=== PATIENT | male | born 1960 | race Caucasian/White ===

== ENCOUNTER 2016-10-09 07:35 | Emergency (ER) | payer OTHER ==
[2016-10-09 07:51] VITALS: BP 119/91; PULSE 90; RESP 20; TEMP 97.7; O2SAT 95
--- NOTE | 2016-10-09 08:01 | UCPHY ---
H & P Time Seen by Provider: 10/09/16 07:43 Patient Type: New HPI/ROS: This patient presents with a chief complaint of bilateral eye irritation. On the right began 3 or 4 days ago and consists eyelid swelling, irritation with mild pain and some blurring of vision and also discharge. The symptoms in left eye are much less severe and began this morning. He has had a cold for 5 days consisting of nasal congestion, sore throat, cough but no fever, chest pain or shortness of breath. He does not wear contacts and denies phonophobia. Smoking Status: Former smoker Physical Exam: GENERAL: Well-appearing, well-nourished and in no acute distress. HEAD: Atraumatic, normocephalic. EYES: Pupils equal round and reactive to light, extraocular movements intact, there is mild to moderate periorbital swelling on the right but none on the left. The conjunctiva on both sides is injected. There is a watery discharge present. There is no obvious photophobia ENT: TMs normal, nares patent, oropharynx mild injection without exudates or tonsillar swelling. Moist mucous membranes. NECK: Normal range of motion, supple without lymphadenopathy or JVD. LUNGS: Breath sounds clear to auscultation bilaterally and equal. No wheezes rales or rhonchi. HEART: Regular rate and rhythm EXTREMITIES: Normal range of motion, no pitting or edema. No clubbing or cyanosis. NEUROLOGICAL: Cranial nerves II through XII grossly intact. Normal speech, normal gait. PSYCH: Normal mood, normal affect. SKIN: Warm, dry, normal turgor, no visible rashes or lesions. Constitutional: Initial Vital Signs Temperature (C) 36.5 C 10/09/16 07:40 Heart Rate 90 10/09/16 07:40 Respiratory Rate 20 10/09/16 07:40 Blood Pressure 119/91 H 10/09/16 07:40 O2 Sat (%) 95 10/09/16 07:40 O2 Delivery Mode Room Air Home Medications: Medication Instructions Recorded Finasteride 10/09/16 Gentamicin 0.3% [Gentak 0.3%] 2 drops EACHEYE Q4H #1 opht.btl 10/09/16 Medical Decision Making Differential Diagnosis: I believe that this patient has conjunctivitis and because of his cyst is associated symptoms I suspect that it is viral. There is nothing to suggests corneal abrasion, foreign body or acute glaucoma. Departure - Departure Disposition: Home, Routine, Self-Care Clinical Impression: Upper respiratory infection Conjunctivitis Qualifiers: Conjunctivitis type: acute Acute conjunctivitis type: unspecified Laterality: bilateral Qualifier Code: (H10.33) Unspecified acute conjunctivitis, bilateral Condition: Good Instructions: Conjunctivitis (ED), Upper Respiratory Infection (ED), How to Use Eye Drops (ED) Additional Instructions: If your symptoms have not improved in 4 or 5 days you should be reexamined. If you feel that your symptoms are worsening with increased pain, increased blurring of vision or increased swelling or fever you should be seen right away. Adult Pain & Fever Control: We recommend Acetaminophen (Tylenol) and Ibuprofen (Motrin, Advil) for pain and fever control. When fever is high or pain severe, both drugs can be used at the same time, but at different intervals. Please note the time differences. Your dose is: Acetaminophen [650]mg every 4 to 6 hours ibuprofen [600]mg every [6] hours with food OR naproxen Sodium (Aleve) [440]mg every 12 hours. Note: do not take Acetaminophen with Hydrocodone (Vicodin, Lortab) or Oxycodone (Percocet). These medications also contain Acetaminophen. No more than 3000 mg of Acetaminophen should be taken in 24 hours (for an adult) . The maximal dose of ibuprofen that it is safe in a 24-hour period is 2400 mg. You may take 400 mg every 4 hours, 600 mg every 6 hours or 800 mg every 8 hours safely. Prescriptions: Gentamicin 0.3% [Gentak 0.3%] 2 drops EACHEYE Q4H #1 opht.btl - PQRS PQRS Measurement: Not applicable
== END 2016-10-09 08:10 | disposition home or self-care (01) ==
LOC: CED 07:35
DX: H10.33 Unspecified acute conjunctivitis, bilateral (principal); J06.9 Acute upper respiratory infection, unspecified
CPT/HCPCS: 99203-PO; G0463-PO